=== PATIENT | female | born 1945 | race Caucasian/White ===

== ENCOUNTER → 2017-05-23 | Outpatient (CLI) | payer MEDICARE ==
[~2017-05-23] MED LIST: ACETAMINOPHEN-1 EAC1 PO; ADULT LOW DOSE81 MG PO; AMOXICILLIN 50500 M1 PO; ANAFRANIL; ASPIRIN81 MG PO; CALCIUM +D & M1 EACH PO; CERTAGEN NG; CLONAZEPAM; CLONAZEPAM 1 MG1 M1 PO; CLONAZEPAM PO; COUMADIN 5 MG TA5 M1 PO; COUMADIN7.5 MG PO; EFFEXOR XR150 MG PO; EFFEXOR XR75 MG PO; FIORICET; FISH OIL 1,001000 M2 PO; FISH OIL500 M1 PO; HYDROCODONE-AP1 EA15 PO; HYDROCORTISONE3011 TP; IMDUR 30 MG TAB30 M1 PO; KLOR-CON 1010 MEQ PO; LASIX 80 MG TAB80 M1 GT; LASIX 80 MG TAB80 MG PO; LEVOTHYROXIN0.125 M1 PO; LEVOTHYROXINE 0.1 MG PO; LISINOPRIL20 MG PO; LOPID600 MG PO; MOBIC7.5 MG PO; NASONEX17 GM NS; NEXIUM40 MG PO; ONDANSETRON HCL4 M2 PO; PAXIL10 MG PO; PHENERGAN 25 MG25 MG PO; PROTONIX40 M2 PO; QUESTRAN LIGHT P4 GM PO; QUESTRAN PACKET4 GM PO; SLOW FE47.5 MG PO; SYNTHROID PO; SYNTHROID175 MCG PO; TOPROL XL 50 MG50 M1 PO; TOPROL XL50 MG PO; TRAMADOL 50 MG50 MG PO; VICODIN ES TAB1 EACH PO; ZOCOR 20 MG TAB20 M1 PO; ZOLOFT100 MG PO; ZYPREXA2.5 MG PO; [UNRECOGNIZED DRUG - OTHER] PO
--- NOTE | 2017-05-23 16:43 | 2DMMODE ---
[place] [address] 2 D/M-MODE ECHOCARDIOGRAM Name: MÓNICA DE SANTIAGO Room: [facility]#: [id number] Admission: 05/23/17 Attend Phys: Javid Melendez, Discharge: Date of : 43 Date of Service: 05/23/17 1642 Report #: [id number] THIS REPORT FOR: //name// APPROVED REPORT Study performed: 05/23/2017 15:08:37 EXAM: Comprehensive 2D, Doppler, and color-flow Echocardiogram Patient Location: Out-Patient Status: routine BSA: 1.50 HR: 76 bpm BP: 130/70 mmHg Other Information Study Quality: Good Indications Cardiomyopathy 2D Dimensions LVEF(%): 73.17 (>50%) IVSd: 10.61 (7-11mm) LVOT Diam: 20.01 (18-24mm) LVDd: 41.03 mm PWd: 9.20 (7-11mm) Ascending Ao: 24.39 (22-36mm) LVDs: 23.90 (25-40mm) Aortic Root: 21.83 mm Aden's LVEF: 73.17 % Volumes Left Atrial Volume (Systole) LA ESV Index: 26.50 mL/m2 Aortic Valve AoV Peak Hudson.: 1.47 m/s AO Peak Gr.: 8.68 mmHg LVOT Max P.06 mmHg AO Mean Gr.: 5.02 mmHg LVOT Mean P.37 mmHg LVOT Max V: 0.88 m/s AO V2 VTI: 33.93 cm LVOT Mean V: 0.53 m/s CHRISTOPHE (VTI): 1.90 cm2 LVOT V1 VTI: 20.53 cm Mitral Valve E/A Ratio: 0.88 MV Decel. Time: 258.99 [place] [address] 2 D/M-MODE ECHOCARDIOGRAM Name: MÓNICA DE SANTIAGO Room: [facility]#: [id number] Admission: 05/23/17 Attend Phys: Javid Melendez, Discharge: Date of : 43 Date of Service: 05/23/17 1642 Report #: [id number] MV E Max Hudson.: 0.91 m/s MV PHT: 75.11 ms MVA (PHT): 2.93 cm2 TDI E/Lateral E': 10.11 E/Medial E': 18.20 Medial E' Hudson.: 0.05 m/s Lateral E' Hudson.: 0.09 m/s Pulmonary Valve PV Peak Hudson.: 0.84 m/s PV Peak Gr.: 2.84 mmHg Tricuspid Valve TR Peak Gr.: 28.75 mmHg RVSP: 33.75 mmHg Left Ventricle The left ventricle is normal size. There is normal LV segmental wall motion. There is normal left ventricular wall thickness. Left ventricular systolic function is normal. The left ventricular ejection fraction is within the normal range. LVEF is 55-60%. Grade I - abnormal relaxation pattern. Right Ventricle The right ventricle is normal size. The right ventricular systolic function is normal. Pacemaker lead is present in the right ventricle. Atria The left atrium size is normal. Pacemaker lead is present in the right atrium. Aortic Valve The aortic valve is normal in structure. No aortic regurgitation is present. There is no aortic valvular stenosis. Mitral Valve The mitral valve is normal in structure. Mild mitral regurgitation. No evidence of mitral valve stenosis. Tricuspid Valve The tricuspid valve is normal in structure. Mild tricuspid regurgitation. The RVSP is __33.7 mmHg. Pulmonic Valve Pulmonic valve is not well visualized. There is no pulmonic [place] [address] 2 D/M-MODE ECHOCARDIOGRAM Name: MÓNICA DE SANTIAGO Room: [facility]#: [id number] Admission: 05/23/17 Attend Phys: Javid Melendez, Discharge: Date of : 43 Date of Service: 05/23/17 1642 Report #: [id number] Great Vessels The aortic root is normal in size. IVC is normal in size and collapses with >50% inspiration Pericardium There is no pericardial effusion. <Conclusion> LVEF is 55-60%. Mild mitral regurgitation. Mild tricuspid regurgitation. The RVSP is __33.7 mmHg. <ELECTRONICALLY SIGNED> By: Loy Elizabeth MD, [facility] 05/23/171641 [id number] Loy Elizabeth MD, FAC /INF
== END ==
LOC: M.CRD 05-16 15:00
DX: I08.1 Rheumatic disorders of both mitral and tricuspid valves (principal); I42.0 Dilated cardiomyopathy; E03.9 Hypothyroidism, unspecified; I25.10 Atherosclerotic heart disease of native coronary artery without angina pectoris; K21.9 Gastro-esophageal reflux disease without esophagitis; E86.0 Dehydration; E83.42 Hypomagnesemia; E87.6 Hypokalemia; I10 Essential (primary) hypertension; E46 Unspecified protein-calorie malnutrition; I50.32 Chronic diastolic (congestive) heart failure; Z90.49 Acquired absence of other specified parts of digestive tract; Z90.710 Acquired absence of both cervix and uterus; Z93.3 Colostomy status; Z95.0 Presence of cardiac pacemaker; Z95.1 Presence of aortocoronary bypass graft

== ENCOUNTER → 2020-06-02 | Outpatient (CLI) | payer MEDICARE | LOC: M.RAD 04-10 10:05 | PROVIDERS: ATTEND Internal Medicine | DX: Z12.31 Encounter for screening mammogram for malignant neoplasm of breast (principal); Z13.820 Encounter for screening for osteoporosis; M81.0 Age-related osteoporosis without current pathological fracture ==

== ENCOUNTER 2021-05-24 01:09 | Observation (INO) | payer MEDICARE ==
[~2021-05-24] VITALS: Ht 152.4 cm; Wt 45.4 kg
[~2021-05-24 01:09] MED LIST changes: -LEVOTHYROXINE 0.1 MG PO; +SYNTHROID100 MC1 PO
[2021-05-24 01:10] VITALS: BP 126/69
[2021-05-24] MEDS ORDERED: LASIX 80 MG TAB80 MG PO (01:22)
[2021-05-24] MEDS ORDERED: NORVASC5 MG PO (01:22)
[2021-05-24] MEDS ORDERED: VITAMIN D250 MCG PO (01:24)
[2021-05-24] MEDS ORDERED: LOSARTAN POTAS100 MG PO (01:24)
[2021-05-24] MEDS ORDERED: EXCEDRIN CAPLE1 EACH PO (01:25)
[2021-05-24] MEDS ORDERED: LOPERAMIDE 2 MG2 MG PO (01:26)
[2021-05-24 01:43] LABS: ABSOLUTE EOSINOPHILS 0.1 thou/uL (0.0-0.7); ABSOLUTE LYMPHOCYTES 1.2 thou/uL (0.8-5.3); ABSOLUTE MONOCYTES 0.5 thou/uL (0.0-1.2); ABSOLUTE NEUTROPHILS 2.6 thou/uL (1.6-8.1); BASOPHILS 0.7 %; EOSINOPHILS 1.8 %; HEMOGLOBIN 11.8 gm/dL (12.0-15.0); LYMPHOCYTES 27.8 %; MCH 31.2 pg (26.0-34.0); MCHC 33.6 g/dL (28.0-37.0); MCV 92.8 fL (80.0-100.0); MPV 7.8 fl. (7.2-11.1); NUCLEATED RBCS 0 /100WBC; PLATELET COUNT* 428 thou/uL (150-400); POLYS 57.7 %; RBC 3.77 mil/uL (4.20-5.00); RDW-CV 13.8 % (10.5-14.5); WBC 4.5 thou/uL (4.0-11.0)
[2021-05-24 01:58] LABS: ALBUMIN 3.6 g/dL (3.4-5.0); CALCIUM 9.6 mg/dL (8.5-10.1); CREATININE 1.2 mg/dL (0.6-1.3); TOTAL BILIRUBIN 0.3 mg/dL (<0.1-1.0); TOTAL PROTEIN 8.3 g/dL (6.4-8.2)
[2021-05-24 02:02] LABS: POTASSIUM 2.2 mmol/L (3.5-5.1)
[2021-05-24 03:16] LABS: URINE BILIRUBIN NEGATIVE (Negative); URINE BLOOD 1+ (Negative); URINE CLARITY CLEAR; URINE COLOR STRAW; URINE GLUCOSE-RANDOM NEGATIVE (Negative); URINE KETONES NEGATIVE (Negative); URINE LEUKOCYTES-REFLEX NEGATIVE (Negative); URINE NITRITE-REFLEX NEGATIVE (Negative); URINE PROTEIN NEGATIVE (Negative); URINE UROBILINOGEN 0.2 E.U./dl (0.2-1.0)
[2021-05-24 03:55] LABS: BACTERIA-REFLEX None Seen /HPF (None Seen); MUCUS None Seen strn/LPF (None Seen); SQUAMOUS 0-3 Few /LPF (0-3); TRANSITIONAL EPITHEL CELL 0-3 Few /LPF (None Seen); URINE RBC 3-10 Few /HPF (0-2); URINE WBC-REFLEX None Seen /HPF (0-5)
[2021-05-24 03:56] LABS: CASTS None Seen /LPF (None Seen); CRYSTALS None Seen /LPF (None Seen)
[2021-05-24 08:25] VITALS: BP 182/79
--- NOTE | 2021-05-24 11:20 | EKG ---
[place] [address] ELECTROCARDIOGRAM REPORT Name: MÓNICA DE SANTIAGO Room: [address]#: [id number] Admission: 05/24/21 Attend Phys: Ion Rizo, Discharge: Date of : 43 Date of Service: 05/24/212 Report #: [id number] THIS REPORT FOR: //name// [facility] ED Test Date: 2021-05-24 Test Time: 01:12:10 Pat Name: MÓNICA DE SANTIAGO Department: Room: [facility] Gender: F Staff Editor: [place] : 1945 Requested By: Renetta Astudillo Order Number: [id number] MD: Loy Elizabeth Measurements Intervals [place] Rate: 80 P: 233 MN: 122 QRS: 235 QRSD: 167 T: 89 QT: 485 QTc: 560 Interpretive Statements Atrial-ventricular dual-paced rhythm No further analysis attempted due to paced rhythm Compared to ECG 12/02/2015 01:24:29 Atrial paced beats now seen Electronically Signed On 05-24-2021 11:19:51 SENIOR CLINICAL CONSULTANT by Loy Elizabeth [email or web address] <ELECTRONICALLY SIGNED> By: Loy Elizabeth MD, [facility] 05/24/21 [id number] Loy Elizabeth MD, [facility] /EPI
[2021-05-24 15:00] VITALS: BP 162/80
[2021-05-24] MEDS ORDERED: FLOMAX0.4 MG PO (15:43)
[2021-05-24 16:00] VITALS: BP 162/80
[2021-05-24 16:23] VITALS: BP 162/80
[2021-05-24 16:24] VITALS: BP 162/80
== END 2021-05-24 16:25 | disposition home or self-care (01) ==
LOC: M.ERS 01:09 → M.TBA-ER 04:22
PROVIDERS: Personal Emergency Response Attendant; ADMIT Internal Medicine; ATTEND Internal Medicine
DX: E87.6 Hypokalemia (principal); Z20.822 Contact with and (suspected) exposure to COVID-19; K52.9 Noninfective gastroenteritis and colitis, unspecified; K56.7 Ileus, unspecified; I10 Essential (primary) hypertension; F32.9 Major depressive disorder, single episode, unspecified; E03.9 Hypothyroidism, unspecified; Z79.899 Other long term (current) drug therapy